=== PATIENT | male | born 1950 | race Caucasian/White ===

== ENCOUNTER 2020-03-08 19:29 | Inpatient (IN) | payer MEDICARE, MEDICAID ==
[~2020-03-08] VITALS: Ht 180.3 cm; Wt 77.1 kg
[~2020-03-08 19:29] MED LIST: ACET-3161 PO; FOLI1TAB63 PO; SEVE800T8 PO; SULF5DRO BOTHEYE
[2020-03-08] MEDS ORDERED: ACETAMINOPHEN 650MG SUPP PR STA (19:51)
[2020-03-08] MEDS ORDERED: PROPOFOL 10MG/ML 100ML 100 ML IV ONE (20:00)
[2020-03-08] MEDS ORDERED: PIPERACILLIN/TAZ 3.375G PREMIX 50 ML IV ONE (20:00)
[2020-03-08] MEDS ORDERED: VANCOMYCIN 1 G PREMIX 200 ML IV ONE (20:00)
[2020-03-08 20:04] LABS: BG DEOXYHEMOGLOBIN 4.3 % (0.0-5.0); BG FRACTION INSPIRED OXYGEN 100; BG HCO3 ACT 14.4 mmol/L (22.0-26.0); BG METHEMOGLOBIN 0.4 % (0.0-1.5); BG OXYGEN SATURATION 95.6 % (92.0-98.5); BG OXYHEMOGLOBIN 94.3 % (94.0-97.0); BG PCO2 34.8 mmHg (35.0-45.0); BG PH 7.234 (7.350-7.450); BG PO2 94.3 mmHg (75.0-100.0); BG SAMPLE SITE LEFT RADIAL; BG TOTAL HEMOGLOBIN 16.6 g/dL (12.0-18.0); BG VENT MODE VENT - AC
[2020-03-08] MEDS ORDERED: DEXAMETHASONE 10 MG/ML VIAL IV ONE (20:15)
[2020-03-08 20:26] LABS: BASOPHILS % 0.8 % (0.0-2.0); EOSINOPHILS % 0.3 % (0.0-5.0); HEMATOCRIT. 48.4 % (42.0-52.0); LYMPHOCYTES % 13.8 % (20.0-50.0); MEAN CORPUSCULAR HEMOGLOBIN 29.5 pg (28.0-32.0); MEAN PLATELET VOLUME 9.3 fl (7.4-10.4); MONOCYTES % 6.8 % (2.0-8.0); NEUTROPHILS % 78.3 % (40.0-76.0); PLATELET 241 x1000/uL (130-400); RED BLOOD CELL COUNT 5.44 mill/uL (4.7-6.1); RED CELL DISTRIBUTION WIDTH 15.4 % (11.6-14.6)
[2020-03-08 20:35] LABS: CHLORIDE 105 mEq/L (98-107)
[2020-03-08 20:37] LABS: INR 1.2; PROTHROMBIN TIME 12.9 sec (9.6-11.0)
[2020-03-08 20:47] LABS: CLARITY URINE CLEAR (CLEAR); COLOR URINE DARK YELLOW (YELLOW); KETONES URINE TRACE (NEGATIVE); LEUKOCYTE ESTERASE URINE NEGATIVE (NEGATIVE); NITRITE URINE NEGATIVE (NEGATIVE); OCCULT BLOOD URINE NEGATIVE (NEGATIVE); PROTEIN URINE 1+ (NEGATIVE); SPECIFIC GRAVITY URINE 1.025 (1.005-1.030); UROBILINOGEN URINE 0.2 E.U./dL (0.2-1.0)
[2020-03-08] MEDS ORDERED: NOREPINEPHRINE 8 MG in DEXT 5% WATER 242 ML IV PRN (21:30)
[2020-03-08] MEDS ORDERED: CLONIDINE 0.1MG TABLET PO PRN (21:30)
[2020-03-08] MEDS ORDERED: DOCUSATE SODIUM 100MG CAPSULE PO PRN (21:30)
[2020-03-08] MEDS ORDERED: ONDANSETRON HCL 4MG/2ML INJ IV PRN (21:30)
[2020-03-08] MEDS ORDERED: ALBUTEROL 6.7GM HFA INHALER ORI PRN (21:30)
[2020-03-08] MEDS ORDERED: ACETAMINOPHEN 325MG TABLET PO PRN ×2 (21:30)
[2020-03-08] MEDS ORDERED: NITROGLYCERIN 0.4MG TABLET SL SL PRN (21:30)
[2020-03-08] MEDS ORDERED: MAGNESIUM/ALUMINUM HYDROXIDE/SIMETHICONE 30ML UDC PO PRN (21:30)
[2020-03-08] MEDS ORDERED: ZOLPIDEM TARTRATE 5MG TABLET PO PRN (21:30)
[2020-03-08] MEDS ORDERED: GUAIFENESIN 200MG/10ML SUGAR FREE UDC PO PRN (21:30)
[2020-03-08 22:18] LABS: VITAMIN B12 SERUM >2000 pg/mL pg/mL (211-911)
[2020-03-08] MEDS: ENOXAPARIN 40MG/0.4ML SYR SUBCUT SCH (22:36)
[2020-03-08] MEDS: CEFTRIAXONE 1 G PREMIX 50 ML IV SCH (23:00)
[2020-03-08] MEDS: AZITHROMYCIN 500 MG in DEXT 5% WATER 250 ML IV SCH (23:44)
[2020-03-09] MEDS ORDERED: PHENYLEPHRINE 50 MG in DEXTROSE 5% WATER 250 ML IV PRN (01:00)
[2020-03-09] MEDS ORDERED: FENTANYL CITRATE 2,500 MCG in SODIUM CHLORIDE 0.9% 200 ML IV PRN (01:00)
[2020-03-09] MEDS ORDERED: ETOMIDATE 2MG/ML 10ML VIAL IV ONE (01:00)
[2020-03-09] MEDS ORDERED: VECURONIUM BROMIDE 10 MG/VIAL IV ONE (01:00)
[2020-03-09] MEDS ORDERED: SODIUM CHLORIDE 0.9% 10ML VIAL ONE (01:00)
[2020-03-09] MEDS: MIDAZOLAM HCL 100 MG in DEXT 5% WATER 100 ML IV PRN (01:17)
[2020-03-09 05:34] LABS: HEMATOCRIT. 43.9 % (42.0-52.0); HEMOGLOBIN. 14.8 g/dL (14.0-18.0); MEAN CORPUSCULAR VOLUME 88.7 fL (80.0-94.0); PLATELET 185 x1000/uL (130-400); RED BLOOD CELL COUNT 4.95 mill/uL (4.7-6.1); RED CELL DISTRIBUTION WIDTH 15.1 % (11.6-14.6)
[2020-03-09 05:42] LABS: CHLORIDE 103 mEq/L (98-107)
[2020-03-09 05:49] LABS: PHOSPHORUS 4.2 mg/dL (2.5-4.9)
[2020-03-09 05:51] LABS: CREATINE KINASE 70 IU/L (39-308)
[2020-03-09 05:54] LABS: CREATINE KINASE MB FRACTION 3.6 ng/mL (0.5-3.6)
[2020-03-09] MEDS: ZINC SULFATE 220 MG ( 50 ) CAPSULE PO SCH (08:24)
[2020-03-09] MEDS: PANTOPRAZOLE SODIUM 40 MG/VIAL IV SCH (08:24)
[2020-03-09] MEDS: DEXAMETHASONE 10 MG/ML VIAL IV SCH (08:24)
[2020-03-09] MEDS: ASCORBIC ACID 500 MG TABLET PO SCH ×2 (08:24→21:07)
[2020-03-09] MEDS ORDERED: SODIUM POLYSTYRENE SULFONATE 15 G/60 ML BOT PO NR (09:00)
[2020-03-09] MEDS: ASPIRIN 325MG TABLET PO SCH (09:00)
[2020-03-09] MEDS: ALBUTEROL 6.7GM HFA INHALER ORI SCH ×2 (09:00→16:19)
[2020-03-09 09:32] LABS: BG BASE EXCESS -5.1 mmol/L (-2.0-2.0); BG CARBOXYHEMOGLOBIN 0.3 % (0.5-1.5); BG DEOXYHEMOGLOBIN 5.3 % (0.0-5.0); BG FRACTION INSPIRED OXYGEN 100; BG HCO3 ACT 18.4 mmol/L (22.0-26.0); BG METHEMOGLOBIN 0.1 % (0.0-1.5); BG OXYGEN SATURATION 94.7 % (92.0-98.5); BG OXYHEMOGLOBIN 94.3 % (94.0-97.0); BG PCO2 30.6 mmHg (35.0-45.0); BG PH 7.396 (7.350-7.450); BG PO2 72.7 mmHg (75.0-100.0); BG SAMPLE SITE RIGHT RADIAL; BG TOTAL HEMOGLOBIN 15.7 g/dL (12.0-18.0); BG TOTAL RESPIRATORY RATE 24 b/min; BG VENT MODE VENT - AC
[2020-03-09] MEDS: SODIUM BICARBONATE 100 MEQ in SODIUM CHLORIDE 0.45% 1,000 ML IV SCH ×2 (09:46→20:08)
[2020-03-09] MEDS ORDERED: TACROLIMUS 5MG CAPSULE PO SCH (17:00)
[2020-03-09] MEDS ORDERED: IPRATROPIUM/ALBUTEROL 0.5-3(2.5)MG/3ML NEB HHN PRN (17:45)
[2020-03-09 18:50] LABS: PLATELET ESTIMATE NORMAL
[2020-03-09] MEDS ORDERED: NOREPINEPHRINE 8 MG in DEXT 5% WATER 242 ML IV PRN (19:45)
[2020-03-09] MEDS: TACROLIMUS 1 MG/ML NG SCH (21:03)
[2020-03-09] MEDS: ENOXAPARIN 40MG/0.4ML SYR SUBCUT SCH (21:07)
[2020-03-09] MEDS: IPRATROPIUM/ALBUTEROL 0.5-3(2.5)MG/3ML NEB HHN SCH (21:50)
[2020-03-09] MEDS: CEFTRIAXONE 1 G PREMIX 50 ML IV SCH (22:15)
[2020-03-09] MEDS: AZITHROMYCIN 500 MG in DEXT 5% WATER 250 ML IV SCH (23:21)
[2020-03-10] MEDS: IPRATROPIUM/ALBUTEROL 0.5-3(2.5)MG/3ML NEB HHN SCH ×6 (00:43→20:20)
[2020-03-10 05:40] LABS: HEMATOCRIT. 41.4 % (42.0-52.0); HEMOGLOBIN. 13.9 g/dL (14.0-18.0); MEAN CORPUSCULAR HEMOGLOBIN 29.4 pg (28.0-32.0); MEAN CORPUSCULAR VOLUME 87.7 fL (80.0-94.0); MEAN PLATELET VOLUME 9.7 fl (7.4-10.4); PLATELET 193 x1000/uL (130-400); RED BLOOD CELL COUNT 4.73 mill/uL (4.7-6.1); RED CELL DISTRIBUTION WIDTH 14.8 % (11.6-14.6)
[2020-03-10 05:47] LABS: CHLORIDE 102 mEq/L (98-107)
[2020-03-10] MEDS ORDERED: TAMSULOSIN HCL 0.4MG SR CAPSULE PO SCH (09:00)
[2020-03-10] MEDS: SODIUM BICARBONATE 100 MEQ in SODIUM CHLORIDE 0.45% 1,000 ML IV SCH (09:15)
[2020-03-10] MEDS: ASPIRIN 325MG TABLET PO SCH (09:34)
[2020-03-10] MEDS: ZINC SULFATE 220 MG ( 50 ) CAPSULE PO SCH (09:34)
[2020-03-10] MEDS: PANTOPRAZOLE SODIUM 40 MG/VIAL IV SCH (09:34)
[2020-03-10] MEDS: DEXAMETHASONE 10 MG/ML VIAL IV SCH (09:34)
[2020-03-10] MEDS: ASCORBIC ACID 500 MG TABLET PO SCH (09:34)
[2020-03-10] MEDS: TACROLIMUS 1 MG/ML NG SCH (09:34)
[2020-03-10 10:24] LABS: BG BASE EXCESS -1.1 mmol/L (-2.0-2.0); BG CARBOXYHEMOGLOBIN 0.5 % (0.5-1.5); BG DEOXYHEMOGLOBIN 7.6 % (0.0-5.0); BG FRACTION INSPIRED OXYGEN 100; BG HCO3 ACT 22.2 mmol/L (22.0-26.0); BG METHEMOGLOBIN 0.2 % (0.0-1.5); BG OXYGEN SATURATION 92.3 % (92.0-98.5); BG OXYHEMOGLOBIN 91.7 % (94.0-97.0); BG PCO2 33.4 mmHg (35.0-45.0); BG PH 7.441 (7.350-7.450); BG PO2 63.3 mmHg (75.0-100.0); BG SAMPLE SITE RIGHT RADIAL; BG TOTAL HEMOGLOBIN 14.1 g/dL (12.0-18.0); BG TOTAL RESPIRATORY RATE 24 b/min; BG VENT MODE VENT - AC
[2020-03-10] MEDS: DEXT 5%/0.45% NACL 1000ML 1,000 ML IV SCH (12:59)
[2020-03-10 13:08] LABS: PLATELET ESTIMATE NORMAL
[2020-03-11] MEDS: IPRATROPIUM/ALBUTEROL 0.5-3(2.5)MG/3ML NEB HHN SCH ×6 (00:30→20:41)
[2020-03-11] MEDS: MIDAZOLAM HCL 100 MG in DEXT 5% WATER 100 ML IV PRN (00:50)
[2020-03-11] MEDS: CEFTRIAXONE 1 G PREMIX 50 ML IV SCH ×2 (01:22→22:30)
[2020-03-11] MEDS: ASCORBIC ACID 500 MG TABLET PO SCH ×3 (01:22→21:00)
[2020-03-11] MEDS: AZITHROMYCIN 500 MG in DEXT 5% WATER 250 ML IV SCH (02:12)
[2020-03-11] MEDS: TACROLIMUS 1 MG/ML NG SCH ×2 (02:20→09:00)
[2020-03-11] MEDS: ENOXAPARIN 40MG/0.4ML SYR SUBCUT SCH (02:21)
[2020-03-11] MEDS: DEXT 5%/0.45% NACL 1000ML 1,000 ML IV SCH ×2 (05:27→19:20)
[2020-03-11] MEDS: DEXAMETHASONE 10 MG/ML VIAL IV SCH (09:00)
[2020-03-11] MEDS: ASPIRIN 325MG TABLET PO SCH (09:00)
[2020-03-11] MEDS: ZINC SULFATE 220 MG ( 50 ) CAPSULE PO SCH (09:00)
[2020-03-11] MEDS: PANTOPRAZOLE SODIUM 40 MG/VIAL IV SCH (09:00)
[2020-03-11 09:44] LABS: BG BASE EXCESS 0.9 mmol/L (-2.0-2.0); BG DEOXYHEMOGLOBIN 2.2 % (0.0-5.0); BG FRACTION INSPIRED OXYGEN 100; BG METHEMOGLOBIN 0.1 % (0.0-1.5); BG OXYGEN SATURATION 97.8 % (92.0-98.5); BG OXYHEMOGLOBIN 97.7 % (94.0-97.0); BG PCO2 33.8 mmHg (35.0-45.0); BG PH 7.469 (7.350-7.450); BG PO2 107.4 mmHg (75.0-100.0); BG SAMPLE SITE RIGHT RADIAL; BG TOTAL HEMOGLOBIN 13.8 g/dL (12.0-18.0); BG VENT MODE VENT - AC
[2020-03-11 12:09] LABS: HEMATOCRIT. 39.9 % (42.0-52.0); HEMOGLOBIN. 13.5 g/dL (14.0-18.0); MEAN CORPUSCULAR HEMOGLOBIN 29.8 pg (28.0-32.0); MEAN CORPUSCULAR VOLUME 88.2 fL (80.0-94.0); PLATELET 199 x1000/uL (130-400); RED BLOOD CELL COUNT 4.53 mill/uL (4.7-6.1); RED CELL DISTRIBUTION WIDTH 14.8 % (11.6-14.6)
[2020-03-11 12:13] LABS: CHLORIDE 101 mEq/L (98-107)
[2020-03-11 12:52] LABS: PLATELET ESTIMATE NORMAL
[2020-03-12] MEDS: IPRATROPIUM/ALBUTEROL 0.5-3(2.5)MG/3ML NEB HHN SCH ×6 (00:22→20:43)
[2020-03-12] MEDS: AZITHROMYCIN 500 MG in DEXT 5% WATER 250 ML IV SCH (01:56)
[2020-03-12] MEDS: TACROLIMUS 1 MG/ML NG SCH ×3 (02:05→18:54)
[2020-03-12] MEDS: ERGOCALCIFEROL 50000UNITS CAPSULE PO SCH (02:05)
[2020-03-12] MEDS: ENOXAPARIN 40MG/0.4ML SYR SUBCUT SCH (02:09)
[2020-03-12 05:23] LABS: HEMATOCRIT. 41.9 % (42.0-52.0); HEMOGLOBIN. 13.9 g/dL (14.0-18.0); MEAN CORPUSCULAR HEMOGLOBIN 29.5 pg (28.0-32.0); MEAN CORPUSCULAR VOLUME 88.8 fL (80.0-94.0); MEAN PLATELET VOLUME 9.4 fl (7.4-10.4); PLATELET 160 x1000/uL (130-400); RED BLOOD CELL COUNT 4.72 mill/uL (4.7-6.1); RED CELL DISTRIBUTION WIDTH 14.8 % (11.6-14.6)
[2020-03-12 05:31] LABS: CHLORIDE 101 mEq/L (98-107)
[2020-03-12 09:59] LABS: PLATELET ESTIMATE NORMAL
[2020-03-12] MEDS: ASPIRIN 325MG TABLET PO SCH (12:00)
[2020-03-12] MEDS: ASCORBIC ACID 500 MG TABLET PO SCH ×2 (12:00→21:00)
[2020-03-12] MEDS: PANTOPRAZOLE SODIUM 40 MG/VIAL IV SCH (12:00)
[2020-03-12] MEDS: ZINC SULFATE 220 MG ( 50 ) CAPSULE PO SCH (12:00)
[2020-03-12] MEDS: DEXAMETHASONE 10 MG/ML VIAL IV SCH (15:25)
[2020-03-12] MEDS: DEXT 5%/0.45% NACL 1000ML 1,000 ML IV SCH (17:33)
[2020-03-12 18:46] LABS: BG BASE EXCESS -0.7 mmol/L (-2.0-2.0); BG DEOXYHEMOGLOBIN 1.2 % (0.0-5.0); BG FRACTION INSPIRED OXYGEN 100; BG HCO3 ACT 21.7 mmol/L (22.0-26.0); BG METHEMOGLOBIN 0.2 % (0.0-1.5); BG OXYGEN SATURATION 98.8 % (92.0-98.5); BG OXYHEMOGLOBIN 98.6 % (94.0-97.0); BG PCO2 29.9 mmHg (35.0-45.0); BG PH 7.479 (7.350-7.450); BG PO2 151.2 mmHg (75.0-100.0); BG SAMPLE SITE RIGHT RADIAL; BG TOTAL HEMOGLOBIN 14.4 g/dL (12.0-18.0); BG VENT MODE VENT - AC
[2020-03-12] MEDS: CEFTRIAXONE 1 G PREMIX 50 ML IV SCH (22:30)
[2020-03-13] MEDS: IPRATROPIUM/ALBUTEROL 0.5-3(2.5)MG/3ML NEB HHN SCH ×6 (00:30→20:25)
[2020-03-13] MEDS: AZITHROMYCIN 500 MG in DEXT 5% WATER 250 ML IV SCH (03:00)
[2020-03-13] MEDS: DEXT 5%/0.45% NACL 1000ML 1,000 ML IV SCH ×2 (04:40→21:20)
[2020-03-13] MEDS: ENOXAPARIN 40MG/0.4ML SYR SUBCUT SCH ×2 (05:00→21:00)
[2020-03-13 08:16] LABS: BG BASE EXCESS -1.6 mmol/L (-2.0-2.0); BG CARBOXYHEMOGLOBIN 0.4 % (0.5-1.5); BG DEOXYHEMOGLOBIN 1.2 % (0.0-5.0); BG HCO3 ACT 22.2 mmol/L (22.0-26.0); BG METHEMOGLOBIN 0.3 % (0.0-1.5); BG OXYGEN SATURATION 98.8 % (92.0-98.5); BG OXYHEMOGLOBIN 98.1 % (94.0-97.0); BG PCO2 34.8 mmHg (35.0-45.0); BG PH 7.422 (7.350-7.450); BG PO2 156.6 mmHg (75.0-100.0); BG SAMPLE SITE RIGHT RADIAL; BG TOTAL HEMOGLOBIN 14.4 g/dL (12.0-18.0); BG VENT MODE VENT - AC
[2020-03-13] MEDS: PANTOPRAZOLE SODIUM 40 MG/VIAL IV SCH (09:34)
[2020-03-13] MEDS: ZINC SULFATE 220 MG ( 50 ) CAPSULE PO SCH (09:34)
[2020-03-13] MEDS: ASPIRIN 325MG TABLET PO SCH (09:34)
[2020-03-13] MEDS: DEXAMETHASONE 10 MG/ML VIAL IV SCH (09:34)
[2020-03-13] MEDS: ASCORBIC ACID 500 MG TABLET PO SCH ×2 (09:34→21:00)
[2020-03-13] MEDS: TACROLIMUS 1 MG/ML NG SCH (10:32)
[2020-03-13] MEDS ORDERED: THEOPHYLLINE ANHYDROUS 80 MG/15 ML 120ML NG SCH (19:00)
[2020-03-14] MEDS: IPRATROPIUM/ALBUTEROL 0.5-3(2.5)MG/3ML NEB HHN SCH ×6 (00:29→20:56)
[2020-03-14] MEDS ORDERED: MIDAZOLAM HCL 100 MG in DEXT 5% WATER 100 ML IV PRN ×2 (07:30→19:45)
[2020-03-14] MEDS: ASPIRIN 325MG TABLET PO SCH (09:00)
[2020-03-14 09:09] LABS: HEMATOCRIT. 44.6 % (42.0-52.0); HEMOGLOBIN. 14.9 g/dL (14.0-18.0); MEAN CORPUSCULAR HEMOGLOBIN 29.7 pg (28.0-32.0); MEAN CORPUSCULAR VOLUME 88.8 fL (80.0-94.0); PLATELET 139 x1000/uL (130-400); RED BLOOD CELL COUNT 5.02 mill/uL (4.7-6.1); RED CELL DISTRIBUTION WIDTH 14.8 % (11.6-14.6)
[2020-03-14 09:16] LABS: CHLORIDE 106 mEq/L (98-107)
[2020-03-14] MEDS: ZINC SULFATE 220 MG ( 50 ) CAPSULE PO SCH (11:30)
[2020-03-14] MEDS: PANTOPRAZOLE SODIUM 40 MG/VIAL IV SCH (11:30)
[2020-03-14] MEDS: ASCORBIC ACID 500 MG TABLET PO SCH ×2 (11:30→21:28)
[2020-03-14] MEDS: DEXAMETHASONE 10 MG/ML VIAL IV SCH (11:30)
[2020-03-14] MEDS ORDERED: SODIUM POLYSTYRENE SULFONATE 15 G/60 ML BOT NG NR (12:30)
[2020-03-14 12:42] LABS: PLATELET ESTIMATE NORMAL
[2020-03-14] MEDS: DEXT 5%/0.45% NACL 1000ML 1,000 ML IV SCH (14:49)
[2020-03-14] MEDS: TACROLIMUS 1 MG/ML NG SCH (16:22)
[2020-03-14] MEDS: ENOXAPARIN 40MG/0.4ML SYR SUBCUT SCH (20:53)
[2020-03-15] VITALS (9 sets, daily range): BP systolic 114–124; BP diastolic 66–74
[2020-03-15] MEDS: IPRATROPIUM/ALBUTEROL 0.5-3(2.5)MG/3ML NEB HHN SCH ×3 (00:10→21:30)
[2020-03-15] MEDS: TACROLIMUS 1 MG/ML NG SCH ×3 (04:16→21:00)
[2020-03-15 04:33] LABS: HEMATOCRIT. 43.6 % (42.0-52.0); MEAN CORPUSCULAR HEMOGLOBIN 29.2 pg (28.0-32.0); MEAN CORPUSCULAR VOLUME 90.9 fL (80.0-94.0); MEAN PLATELET VOLUME 9.9 fl (7.4-10.4); PLATELET 78 x1000/uL (130-400); RED CELL DISTRIBUTION WIDTH 15.1 % (11.6-14.6)
[2020-03-15] MEDS ORDERED: SODIUM BICARBONATE 8.4% 1 MEQ/ML 50ML SYR IV NR (05:39)
[2020-03-15] MEDS ORDERED: DEXTROSE 50% WATER 50ML SYRINGE IV NR (05:39)
[2020-03-15] MEDS ORDERED: SODIUM POLYSTYRENE SULFONATE 15 G/60 ML BOT PO NR (05:39)
[2020-03-15] MEDS ORDERED: INSULIN REGULAR (HUMULIN R) 300UNITS/3ML VIAL IV NR (05:39)
[2020-03-15] MEDS ORDERED: CALCIUM CHLORIDE 1,000 MG in DEXT 5% WATER 90 ML IV NR (06:00)
[2020-03-15 09:06] LABS: CREATINE KINASE 45 IU/L (39-308)
[2020-03-15] MEDS: PANTOPRAZOLE SODIUM 40 MG/VIAL IV SCH (10:31)
[2020-03-15] MEDS: DEXAMETHASONE 10 MG/ML VIAL IV SCH (10:31)
[2020-03-15] MEDS: ASPIRIN 325MG TABLET PO SCH (10:32)
[2020-03-15] MEDS: ZINC SULFATE 220 MG ( 50 ) CAPSULE PO SCH (10:32)
[2020-03-15] MEDS: ASCORBIC ACID 500 MG TABLET PO SCH ×2 (10:32→21:54)
[2020-03-15 11:31] LABS: BG BASE EXCESS -3.2 mmol/L (-2.0-2.0); BG CARBOXYHEMOGLOBIN 0.5 % (0.5-1.5); BG FRACTION INSPIRED OXYGEN 100; BG HCO3 ACT 21.5 mmol/L (22.0-26.0); BG OXYHEMOGLOBIN 96.5 % (94.0-97.0); BG PCO2 37.8 mmHg (35.0-45.0); BG PH 7.373 (7.350-7.450); BG PO2 93.2 mmHg (75.0-100.0); BG SAMPLE SITE LEFT BRACHIAL; BG TOTAL HEMOGLOBIN 15.3 g/dL (12.0-18.0); BG TOTAL RESPIRATORY RATE 26 b/min; BG VENT MODE VENT - AC
[2020-03-15 14:01] LABS: PLATELET ESTIMATE DECREASED
[2020-03-15] MEDS: DEXT 5%/0.45% NACL 1000ML 1,000 ML IV SCH (21:56)
[2020-03-15] MEDS: FENTANYL CITRATE 2,500 MCG in SODIUM CHLORIDE 0.9% 200 ML IV PRN (22:00)
[2020-03-16] VITALS (84 sets, daily range): BP systolic 116–182; BP diastolic 55–88
[2020-03-16 00:01] LABS: BG BASE EXCESS -4.5 mmol/L (-2.0-2.0); BG CARBOXYHEMOGLOBIN 0.7 % (0.5-1.5); BG DEOXYHEMOGLOBIN 9.9 % (0.0-5.0); BG FRACTION INSPIRED OXYGEN 100; BG HCO3 ACT 20.9 mmol/L (22.0-26.0); BG METHEMOGLOBIN 0.3 % (0.0-1.5); BG OXYHEMOGLOBIN 89.1 % (94.0-97.0); BG PCO2 39.9 mmHg (35.0-45.0); BG PH 7.337 (7.350-7.450); BG PO2 59.2 mmHg (75.0-100.0); BG SAMPLE SITE RIGHT BRACHIAL; BG TOTAL HEMOGLOBIN 14.9 g/dL (12.0-18.0); BG VENT MODE VENT - AC
[2020-03-16] MEDS: MIDAZOLAM HCL 100 MG in SODIUM CHLORIDE 0.9% 80 ML IV PRN ×2 (00:03→17:10)
[2020-03-16] MEDS: DEXT 5%/0.45% NACL 1000ML 1,000 ML IV SCH (00:04)
[2020-03-16] MEDS: IPRATROPIUM/ALBUTEROL 0.5-3(2.5)MG/3ML NEB HHN SCH ×7 (02:11→23:53)
[2020-03-16 07:53] LABS: BG BASE EXCESS -3.8 mmol/L (-2.0-2.0); BG CARBOXYHEMOGLOBIN 1.5 % (0.5-1.5); BG FRACTION INSPIRED OXYGEN 100; BG HCO3 ACT 20.2 mmol/L (22.0-26.0); BG METHEMOGLOBIN 0.3 % (0.0-1.5); BG OXYGEN SATURATION 96.9 % (92.0-98.5); BG OXYHEMOGLOBIN 95.2 % (94.0-97.0); BG PCO2 33.8 mmHg (35.0-45.0); BG PH 7.394 (7.350-7.450); BG PO2 87.9 mmHg (75.0-100.0); BG SAMPLE SITE RIGHT RADIAL; BG TOTAL HEMOGLOBIN 14.1 g/dL (12.0-18.0); BG TOTAL RESPIRATORY RATE 24 b/min; BG VENT MODE VENT - AC
[2020-03-16] MEDS: TACROLIMUS 1 MG/ML NG SCH ×2 (09:00→21:24)
[2020-03-16] MEDS: ZINC SULFATE 220 MG ( 50 ) CAPSULE PO SCH (09:29)
[2020-03-16] MEDS: DEXAMETHASONE 10 MG/ML VIAL IV SCH (09:29)
[2020-03-16] MEDS: ASPIRIN 325MG TABLET PO SCH (09:29)
[2020-03-16] MEDS: PANTOPRAZOLE SODIUM 40 MG/VIAL IV SCH (09:29)
[2020-03-16] MEDS: ASCORBIC ACID 500 MG TABLET PO SCH ×2 (09:29→21:24)
[2020-03-16] MEDS: DEXT 5%/0.9% NACL 1,000 ML IV SCH ×2 (16:24→19:01)
[2020-03-16] MEDS: FENTANYL CITRATE 2,500 MCG in SODIUM CHLORIDE 0.9% 200 ML IV PRN (18:55)
[2020-03-16 22:17] LABS: BG BASE EXCESS -7.2 mmol/L (-2.0-2.0); BG CARBOXYHEMOGLOBIN 1.4 % (0.5-1.5); BG DEOXYHEMOGLOBIN 67.5 % (0.0-5.0); BG FRACTION INSPIRED OXYGEN 100; BG HCO3 ACT 22.5 mmol/L (22.0-26.0); BG METHEMOGLOBIN 0.2 % (0.0-1.5); BG OXYGEN SATURATION 31.4 % (92.0-98.5); BG OXYHEMOGLOBIN 30.9 % (94.0-97.0); BG PCO2 63.7 mmHg (35.0-45.0); BG PH 7.165 (7.350-7.450); BG PO2 < 30.3 mmHg (75.0-100.0); BG SAMPLE SITE RIGHT RADIAL; BG TOTAL HEMOGLOBIN 14.8 g/dL (12.0-18.0); BG VENT MODE VENT - AC
[2020-03-16] MEDS ORDERED: DILTIAZEM HCL 5MG/ML 5ML VIAL IV NR (22:30)
[2020-03-16] MEDS ORDERED: DILTIAZEM HCL 5MG/ML 5ML VIAL IV ONE (22:30)
[2020-03-16] MEDS ORDERED: AMIODARONE HCL 150 MG in DEXT 5% WATER 100 ML IV NR (23:00)
[2020-03-16 23:27] LABS: BG BASE EXCESS -10.1 mmol/L (-2.0-2.0); BG CARBOXYHEMOGLOBIN 1.5 % (0.5-1.5); BG DEOXYHEMOGLOBIN 52.6 % (0.0-5.0); BG FRACTION INSPIRED OXYGEN 100; BG HCO3 ACT 19.7 mmol/L (22.0-26.0); BG METHEMOGLOBIN 0.1 % (0.0-1.5); BG OXYGEN SATURATION 46.5 % (92.0-98.5); BG OXYHEMOGLOBIN 45.8 % (94.0-97.0); BG PH 7.134 (7.350-7.450); BG PO2 < 30.3 mmHg (75.0-100.0); BG TOTAL HEMOGLOBIN 14.8 g/dL (12.0-18.0); BG VENT MODE VENT - AC
[2020-03-17] VITALS (80 sets, daily range): BP systolic 84–143; BP diastolic 47–79
[2020-03-17] MEDS ORDERED: AMIODARONE HCL 900 MG in DEXT 5% WATER 482 ML IV SCH ×2
[2020-03-17] MEDS: IPRATROPIUM/ALBUTEROL 0.5-3(2.5)MG/3ML NEB HHN SCH ×5 (04:03→20:19)
[2020-03-17 06:04] LABS: HEMATOCRIT. 39.2 % (42.0-52.0); HEMOGLOBIN. 12.6 g/dL (14.0-18.0); MEAN CORPUSCULAR HEMOGLOBIN 29.6 pg (28.0-32.0); MEAN CORPUSCULAR VOLUME 92.2 fL (80.0-94.0); MEAN PLATELET VOLUME 10.5 fl (7.4-10.4); RED BLOOD CELL COUNT 4.25 mill/uL (4.7-6.1); RED CELL DISTRIBUTION WIDTH 15.9 % (11.6-14.6)
[2020-03-17 06:10] LABS: PHOSPHORUS 5.6 mg/dL (2.5-4.9)
[2020-03-17] MEDS ORDERED: SODIUM BICARBONATE 8.4% 1 MEQ/ML 50ML SYR IV NR (09:01)
[2020-03-17] MEDS ORDERED: LIDOCAINE HCL 1% 20ML VIAL (Pyxis) INJ ONE (09:36)
[2020-03-17] MEDS ORDERED: SODIUM BICARBONATE 4% (2.4MEQ) 5ML VIAL IV ONE (09:36)
[2020-03-17] MEDS: MIDAZOLAM HCL 100 MG in DEXT 5% WATER 80 ML IV PRN (09:45)
[2020-03-17] MEDS: ASCORBIC ACID 500 MG TABLET PO SCH ×2 (09:45→23:36)
[2020-03-17] MEDS ORDERED: SODIUM BICARBONATE 8.4% 1 MEQ/ML 50ML SYR IV SCH (09:45)
[2020-03-17] MEDS: ASPIRIN 325MG TABLET PO SCH (09:45)
[2020-03-17] MEDS: DEXAMETHASONE 10 MG/ML VIAL IV SCH (09:45)
[2020-03-17] MEDS: ZINC SULFATE 220 MG ( 50 ) CAPSULE PO SCH (09:45)
[2020-03-17] MEDS: PANTOPRAZOLE SODIUM 40 MG/VIAL IV SCH (09:45)
[2020-03-17] MEDS: DEXT 5%/0.9% NACL 1,000 ML IV SCH ×2 (09:46→09:47)
[2020-03-17 10:34] LABS: BG DEOXYHEMOGLOBIN 1.6 % (0.0-5.0); BG FRACTION INSPIRED OXYGEN 100; BG HCO3 ACT 18.6 mmol/L (22.0-26.0); BG METHEMOGLOBIN 0.3 % (0.0-1.5); BG OXYGEN SATURATION 98.4 % (92.0-98.5); BG OXYHEMOGLOBIN 97.1 % (94.0-97.0); BG PCO2 37.6 mmHg (35.0-45.0); BG PH 7.312 (7.350-7.450); BG SAMPLE SITE RIGHT RADIAL; BG TOTAL HEMOGLOBIN 12.1 g/dL (12.0-18.0); BG VENT MODE VENT - AC
[2020-03-17] MEDS ORDERED: CALCIUM CHLORIDE 1,000 MG in DEXT 5% WATER 90 ML IV NR (11:00)
[2020-03-17] MEDS ORDERED: DEXTROSE 50% WATER 50ML SYRINGE IV NR (11:00)
[2020-03-17] MEDS ORDERED: SODIUM POLYSTYRENE SULFONATE 15 G/60 ML BOT PO NR (11:00)
[2020-03-17] MEDS ORDERED: INSULIN REGULAR (HUMULIN R) UD 100 UNITS/ML SYR IV NR (11:00)
[2020-03-17] MEDS ORDERED: INSULIN REGULAR (HUMULIN R) 300UNITS/3ML VIAL IV NR (11:03)
[2020-03-17] MEDS: TACROLIMUS 1 MG/ML NG SCH ×2 (11:15→23:36)
[2020-03-17 12:25] LABS: INR 1.6; PARTIAL THROMBOPLASTIN TIME 40.9 sec (23.4-31.0); PROTHROMBIN TIME 16.3 sec (9.6-11.0)
[2020-03-17 13:30] LABS: PLATELET 35 x1000/uL (130-400); PLATELET ESTIMATE MARKEDLY DECREASED
[2020-03-17] MEDS ORDERED: INSULIN REGULAR (HUMULIN R) 300UNITS/3ML VIAL SUBCUT SCH (23:00)
[2020-03-17] MEDS ORDERED: SODIUM CHLORIDE 0.45% 1,000 ML IV SCH (23:15)
[2020-03-17] MEDS ORDERED: INSULIN GLARGINE UD 100 UNITS/ML SYR SUBCUT SCH (23:30)
[2020-03-18] VITALS (94 sets, daily range): BP systolic 122–164; BP diastolic 60–90
[2020-03-18] MEDS: MIDAZOLAM HCL 100 MG in DEXT 5% WATER 80 ML IV PRN ×2 (00:01→14:32)
[2020-03-18] MEDS: IPRATROPIUM/ALBUTEROL 0.5-3(2.5)MG/3ML NEB HHN SCH ×5 (00:15→20:41)
[2020-03-18] MEDS: BLOOD SUGAR DIAGNOSTIC STRIP TEST SCH ×4 (00:43→17:37)
[2020-03-18] MEDS: INSULIN LISPRO 100 UNITS/ML SUBCUT SCH ×4 (00:47→17:36)
[2020-03-18] MEDS: FENTANYL CITRATE 2,500 MCG in SODIUM CHLORIDE 0.9% 200 ML IV PRN (03:19)
[2020-03-18 06:10] LABS: HEMATOCRIT. 33.9 % (42.0-52.0); MEAN CORPUSCULAR HEMOGLOBIN 29.3 pg (28.0-32.0); MEAN CORPUSCULAR VOLUME 90.7 fL (80.0-94.0); MEAN PLATELET VOLUME 10.4 fl (7.4-10.4); RED BLOOD CELL COUNT 3.74 mill/uL (4.7-6.1); RED CELL DISTRIBUTION WIDTH 15.4 % (11.6-14.6)
[2020-03-18] MEDS: TACROLIMUS 1 MG/ML NG SCH ×2 (08:40→22:10)
[2020-03-18] MEDS: ZINC SULFATE 220 MG ( 50 ) CAPSULE PO SCH (08:42)
[2020-03-18] MEDS: DEXAMETHASONE 10 MG/ML VIAL IV SCH (08:42)
[2020-03-18] MEDS: ERGOCALCIFEROL 50000UNITS CAPSULE PO SCH (08:42)
[2020-03-18] MEDS: ASCORBIC ACID 500 MG TABLET PO SCH ×2 (08:42→22:09)
[2020-03-18] MEDS: PANTOPRAZOLE SODIUM 40 MG/VIAL IV SCH (08:42)
[2020-03-18] MEDS: ASPIRIN 325MG TABLET PO SCH (08:42)
[2020-03-18] MEDS: FUROSEMIDE 40MG/4ML VIAL IVP SCH (08:44)
[2020-03-18] MEDS: INSULIN GLARGINE UD 100 UNITS/ML SYR SUBCUT SCH ×2 (12:44→22:11)
[2020-03-18] MEDS: MYCOPHENOLATE MOFETIL 200MG/ML ORAL SUSP NG SCH ×2 (13:44→22:10)
[2020-03-18 15:02] LABS: PLATELET ESTIMATE MARKEDLY DECREASED
[2020-03-18 15:03] LABS: PLATELET 45 x1000/uL (130-400)
[2020-03-18] MEDS ORDERED: INSULIN GLARGINE UD 100 UNITS/ML SYR SUBCUT SCH (22:00)
[2020-03-19] VITALS (86 sets, daily range): BP systolic 99–150; BP diastolic 55–77
[2020-03-19] MEDS: IPRATROPIUM/ALBUTEROL 0.5-3(2.5)MG/3ML NEB HHN SCH ×6 (00:27→21:51)
[2020-03-19] MEDS: BLOOD SUGAR DIAGNOSTIC STRIP TEST SCH ×5 (00:42→23:49)
[2020-03-19] MEDS: INSULIN LISPRO 100 UNITS/ML SUBCUT SCH ×5 (00:51→23:52)
[2020-03-19] MEDS: FENTANYL CITRATE 2,500 MCG in SODIUM CHLORIDE 0.9% 200 ML IV PRN ×2 (00:55→19:00)
[2020-03-19] MEDS: MIDAZOLAM HCL 100 MG in DEXT 5% WATER 80 ML IV PRN ×3 (03:11→22:27)
[2020-03-19 04:35] LABS: HEMATOCRIT. 35.1 % (42.0-52.0); HEMOGLOBIN. 11.3 g/dL (14.0-18.0); MEAN CORPUSCULAR HEMOGLOBIN 28.7 pg (28.0-32.0); MEAN CORPUSCULAR VOLUME 89.1 fL (80.0-94.0); MEAN PLATELET VOLUME 10.8 fl (7.4-10.4); RED BLOOD CELL COUNT 3.94 mill/uL (4.7-6.1); RED CELL DISTRIBUTION WIDTH 15.1 % (11.6-14.6)
[2020-03-19 04:48] LABS: PHOSPHORUS 5.6 mg/dL (2.5-4.9)
[2020-03-19 11:01] LABS: BG BASE EXCESS 0.5 mmol/L (-2.0-2.0); BG CARBOXYHEMOGLOBIN 0.3 % (0.5-1.5); BG DEOXYHEMOGLOBIN 1.5 % (0.0-5.0); BG FRACTION INSPIRED OXYGEN 100; BG HCO3 ACT 24.5 mmol/L (22.0-26.0); BG METHEMOGLOBIN 0.1 % (0.0-1.5); BG OXYGEN SATURATION 98.5 % (92.0-98.5); BG OXYHEMOGLOBIN 98.1 % (94.0-97.0); BG PCO2 37.4 mmHg (35.0-45.0); BG PH 7.435 (7.350-7.450); BG PO2 149.1 mmHg (75.0-100.0); BG SAMPLE SITE RIGHT RADIAL; BG TOTAL RESPIRATORY RATE 36 b/min; BG VENT MODE VENT - AC
[2020-03-19] MEDS: MYCOPHENOLATE MOFETIL 200MG/ML ORAL SUSP NG SCH ×2 (11:45→22:06)
[2020-03-19] MEDS: ASCORBIC ACID 500 MG TABLET PO SCH ×2 (11:46→22:05)
[2020-03-19] MEDS: TACROLIMUS 1 MG/ML NG SCH ×2 (11:46→22:06)
[2020-03-19] MEDS: PANTOPRAZOLE SODIUM 40 MG/VIAL IV SCH (11:46)
[2020-03-19] MEDS: ASPIRIN 81MG TABLET PO SCH (11:46)
[2020-03-19] MEDS: FUROSEMIDE 40MG/4ML VIAL IVP SCH (11:47)
[2020-03-19] MEDS: ZINC SULFATE 220 MG ( 50 ) CAPSULE PO SCH (11:47)
[2020-03-19] MEDS: DEXAMETHASONE 10 MG/ML VIAL IV SCH (11:47)
[2020-03-19] MEDS: INSULIN GLARGINE UD 100 UNITS/ML SYR SUBCUT SCH ×2 (11:49→22:23)
[2020-03-19 14:58] LABS: PLATELET 46 x1000/uL (130-400); PLATELET ESTIMATE MARKEDLY DECREASED
[2020-03-20] VITALS (91 sets, daily range): BP systolic 117–166; BP diastolic 64–90
[2020-03-20] MEDS: IPRATROPIUM/ALBUTEROL 0.5-3(2.5)MG/3ML NEB HHN SCH ×6 (01:21→21:35)
[2020-03-20] MEDS: BLOOD SUGAR DIAGNOSTIC STRIP TEST SCH ×3 (07:00→17:49)
[2020-03-20] MEDS: INSULIN LISPRO 100 UNITS/ML SUBCUT SCH ×3 (08:19→17:49)
[2020-03-20 09:44] LABS: BG BASE EXCESS 0.7 mmol/L (-2.0-2.0); BG CARBOXYHEMOGLOBIN 0.6 % (0.5-1.5); BG DEOXYHEMOGLOBIN 3.1 % (0.0-5.0); BG FRACTION INSPIRED OXYGEN 100; BG HCO3 ACT 25.2 mmol/L (22.0-26.0); BG METHEMOGLOBIN 0.3 % (0.0-1.5); BG OXYGEN SATURATION 96.9 % (92.0-98.5); BG PCO2 40.1 mmHg (35.0-45.0); BG PH 7.416 (7.350-7.450); BG PO2 95.9 mmHg (75.0-100.0); BG SAMPLE SITE RIGHT RADIAL; BG TOTAL HEMOGLOBIN 12.4 g/dL (12.0-18.0); BG VENT MODE VENT - AC
[2020-03-20] MEDS: ZINC SULFATE 220 MG ( 50 ) CAPSULE PO SCH (10:03)
[2020-03-20] MEDS: INSULIN GLARGINE UD 100 UNITS/ML SYR SUBCUT SCH ×2 (10:03→21:47)
[2020-03-20] MEDS: DEXAMETHASONE 10 MG/ML VIAL IV SCH (10:03)
[2020-03-20] MEDS: ASPIRIN 81MG TABLET PO SCH (10:03)
[2020-03-20] MEDS: FUROSEMIDE 40MG/4ML VIAL IVP SCH (10:03)
[2020-03-20] MEDS: ASCORBIC ACID 500 MG TABLET PO SCH ×2 (10:03→21:44)
[2020-03-20] MEDS: PANTOPRAZOLE SODIUM 40 MG/VIAL IV SCH (10:03)
[2020-03-20] MEDS: TACROLIMUS 1 MG/ML NG SCH ×2 (10:04→21:44)
[2020-03-20] MEDS: MYCOPHENOLATE MOFETIL 200MG/ML ORAL SUSP NG SCH ×2 (10:04→21:44)
[2020-03-20] MEDS: MIDAZOLAM HCL 100 MG in DEXT 5% WATER 80 ML IV PRN ×2 (10:13→21:40)
[2020-03-20 13:06] LABS: HEMATOCRIT. 40.5 % (42.0-52.0); MEAN CORPUSCULAR HEMOGLOBIN 29.2 pg (28.0-32.0); MEAN CORPUSCULAR VOLUME 91.4 fL (80.0-94.0); RED BLOOD CELL COUNT 4.43 mill/uL (4.7-6.1); RED CELL DISTRIBUTION WIDTH 15.7 % (11.6-14.6)
[2020-03-20 15:23] LABS: PLATELET ESTIMATE MARKEDLY DECREASED
[2020-03-20] MEDS: THEOPHYLLINE ANHYDROUS 80 MG/15 ML 120ML NG SCH ×2 (15:23→21:45)
[2020-03-20 15:31] LABS: MEAN PLATELET VOLUME 11.9 fl (7.4-10.4); PLATELET 43 x1000/uL (130-400)
[2020-03-20] MEDS ORDERED: SODIUM POLYSTYRENE SULFONATE 15 G/60 ML BOT NG NR (17:00)
[2020-03-20] MEDS: FENTANYL CITRATE/PF 2,500 MCG in SODIUM CHLORIDE 0.9% 200 ML IV PRN (17:48)
[2020-03-21] VITALS (92 sets, daily range): BP systolic 83–175; BP diastolic 45–94
[2020-03-21] MEDS: BLOOD SUGAR DIAGNOSTIC STRIP TEST SCH ×4 (00:32→17:50)
[2020-03-21] MEDS: INSULIN LISPRO 100 UNITS/ML SUBCUT SCH ×4 (00:58→17:53)
[2020-03-21] MEDS: IPRATROPIUM/ALBUTEROL 0.5-3(2.5)MG/3ML NEB HHN SCH ×5 (03:50→21:23)
[2020-03-21 05:30] LABS: HEMATOCRIT. 37.9 % (42.0-52.0); HEMOGLOBIN. 12.1 g/dL (14.0-18.0); MEAN CORPUSCULAR HEMOGLOBIN 28.6 pg (28.0-32.0); MEAN CORPUSCULAR VOLUME 89.5 fL (80.0-94.0); MEAN PLATELET VOLUME 12.3 fl (7.4-10.4); RED BLOOD CELL COUNT 4.23 mill/uL (4.7-6.1); RED CELL DISTRIBUTION WIDTH 15.3 % (11.6-14.6)
[2020-03-21] MEDS: THEOPHYLLINE ANHYDROUS 80 MG/15 ML 120ML NG SCH ×3 (06:00→21:07)
[2020-03-21 06:50] LABS: PLATELET 48 x1000/uL (130-400)
[2020-03-21] MEDS: ASPIRIN 81MG TABLET PO SCH (09:00)
[2020-03-21 09:09] LABS: BG BASE EXCESS 1.8 mmol/L (-2.0-2.0); BG CARBOXYHEMOGLOBIN 0.5 % (0.5-1.5); BG DEOXYHEMOGLOBIN 8.7 % (0.0-5.0); BG FRACTION INSPIRED OXYGEN 100; BG HCO3 ACT 26.8 mmol/L (22.0-26.0); BG METHEMOGLOBIN 0.3 % (0.0-1.5); BG OXYGEN SATURATION 91.2 % (92.0-98.5); BG OXYHEMOGLOBIN 90.5 % (94.0-97.0); BG PCO2 43.4 mmHg (35.0-45.0); BG PH 7.408 (7.350-7.450); BG PO2 59.1 mmHg (75.0-100.0); BG SAMPLE SITE RIGHT RADIAL; BG TOTAL HEMOGLOBIN 13.9 g/dL (12.0-18.0); BG TOTAL RESPIRATORY RATE 44 b/min; BG VENT MODE VENT - AC
[2020-03-21] MEDS: PANTOPRAZOLE SODIUM 40 MG/VIAL IV SCH (09:50)
[2020-03-21] MEDS: FUROSEMIDE 20MG/2ML VIAL IVP SCH (09:50)
[2020-03-21] MEDS: TACROLIMUS 1 MG/ML NG SCH ×2 (09:51→21:07)
[2020-03-21] MEDS: MYCOPHENOLATE MOFETIL 200MG/ML ORAL SUSP NG SCH ×2 (09:51→21:05)
[2020-03-21] MEDS: ZINC SULFATE 220 MG ( 50 ) CAPSULE PO SCH (09:51)
[2020-03-21] MEDS: INSULIN GLARGINE UD 100 UNITS/ML SYR SUBCUT SCH ×2 (09:51→22:02)
[2020-03-21] MEDS: ASCORBIC ACID 500 MG TABLET PO SCH ×2 (09:52→21:07)
[2020-03-21] MEDS: MIDAZOLAM HCL 100 MG in DEXT 5% WATER 80 ML IV PRN (10:29)
[2020-03-21] MEDS: FENTANYL CITRATE/PF 2,500 MCG in SODIUM CHLORIDE 0.9% 200 ML IV PRN (12:09)
[2020-03-21 14:24] LABS: PLATELET ESTIMATE DECREASED
[2020-03-21] MEDS ORDERED: MIDAZOLAM HCL 100 MG in SODIUM CHLORIDE 0.9% 80 ML IV PRN (18:30)
[2020-03-21] MEDS ORDERED: SODIUM CHLORIDE 0.9% 250 ML IV ONE (23:30)
[2020-03-22] VITALS (111 sets, daily range): BP systolic 72–150; BP diastolic 39–99
[2020-03-22] MEDS ORDERED: SODIUM CHLORIDE 0.9% 250 ML IV ONE (01:30)
[2020-03-22] MEDS ORDERED: NOREPINEPHRINE 32 MG in SODIUM CHLORIDE 0.9% 218 ML IV SCH (03:00)
[2020-03-22] MEDS: FENTANYL CITRATE/PF 2,500 MCG in SODIUM CHLORIDE 0.9% 200 ML IV PRN ×3 (03:01→20:00)
[2020-03-22] MEDS: IPRATROPIUM/ALBUTEROL 0.5-3(2.5)MG/3ML NEB HHN SCH ×5 (03:57→21:35)
[2020-03-22] MEDS: BLOOD SUGAR DIAGNOSTIC STRIP TEST SCH ×4 (05:16→18:27)
[2020-03-22] MEDS: THEOPHYLLINE ANHYDROUS 80 MG/15 ML 120ML NG SCH ×3 (05:16→22:23)
[2020-03-22] MEDS: INSULIN LISPRO 100 UNITS/ML SUBCUT SCH ×4 (05:16→18:00)
[2020-03-22 06:19] LABS: HEMATOCRIT. 35.9 % (42.0-52.0); HEMOGLOBIN. 11.3 g/dL (14.0-18.0); MEAN CORPUSCULAR HEMOGLOBIN 28.7 pg (28.0-32.0); MEAN CORPUSCULAR VOLUME 90.7 fL (80.0-94.0); MEAN PLATELET VOLUME 11.8 fl (7.4-10.4); RED BLOOD CELL COUNT 3.95 mill/uL (4.7-6.1); RED CELL DISTRIBUTION WIDTH 15.8 % (11.6-14.6)
[2020-03-22 06:40] LABS: PHOSPHORUS 5.3 mg/dL (2.5-4.9)
[2020-03-22 06:49] LABS: PLATELET 46 x1000/uL (130-400)
[2020-03-22] MEDS ORDERED: AMIODARONE HCL 900 MG in DEXT 5% WATER 482 ML IV PRN (08:45)
[2020-03-22] MEDS ORDERED: AMIODARONE HCL 150 MG in DEXT 5% WATER 100 ML IV SCH (08:45)
[2020-03-22] MEDS ORDERED: DEXTROSE 5% WATER 1,000 ML IV SCH (09:00)
[2020-03-22] MEDS: PHENYLEPHRINE 100 MG in SODIUM CHLORIDE 0.9% 240 ML IV SCH (09:03)
[2020-03-22 10:10] LABS: PLATELET ESTIMATE DECREASED
[2020-03-22] MEDS: ZINC SULFATE 220 MG ( 50 ) CAPSULE PO SCH (10:22)
[2020-03-22] MEDS: PANTOPRAZOLE SODIUM 40 MG/VIAL IV SCH (10:22)
[2020-03-22] MEDS: HYDROCORTISONE SOD SUCCINATE 100 MG/2 ML VIAL IV SCH ×2 (10:22→18:39)
[2020-03-22] MEDS: ASPIRIN 81MG TABLET PO SCH (10:23)
[2020-03-22] MEDS: TACROLIMUS 1 MG/ML NG SCH (10:23)
[2020-03-22] MEDS: INSULIN GLARGINE UD 100 UNITS/ML SYR SUBCUT SCH ×2 (10:23→22:00)
[2020-03-22] MEDS: FUROSEMIDE 20MG/2ML VIAL IVP SCH (10:23)
[2020-03-22] MEDS: ASCORBIC ACID 500 MG TABLET PO SCH ×2 (10:23→22:21)
[2020-03-22] MEDS: VASOPRESSIN 20 UNIT in SODIUM CHLORIDE 0.9% 99 ML IV PRN ×2 (13:00→20:00)
[2020-03-22 13:12] LABS: BG BASE EXCESS -1.6 mmol/L (-2.0-2.0); BG CARBOXYHEMOGLOBIN 1.6 % (0.5-1.5); BG DEOXYHEMOGLOBIN 22.7 % (0.0-5.0); BG FRACTION INSPIRED OXYGEN 100; BG HCO3 ACT 25.4 mmol/L (22.0-26.0); BG METHEMOGLOBIN 0.1 % (0.0-1.5); BG OXYGEN SATURATION 76.9 % (92.0-98.5); BG OXYHEMOGLOBIN 75.6 % (94.0-97.0); BG PCO2 52.6 mmHg (35.0-45.0); BG PH 7.302 (7.350-7.450); BG PO2 44.7 mmHg (75.0-100.0); BG SAMPLE SITE RIGHT RADIAL; BG TOTAL HEMOGLOBIN 13.5 g/dL (12.0-18.0); BG TOTAL RESPIRATORY RATE 36 b/min; BG VENT MODE VENT - AC
[2020-03-22] MEDS: AMIODARONE HCL 200 MG TABLET PO SCH ×2 (14:19→22:21)
[2020-03-22] MEDS ORDERED: MIDAZOLAM HCL 100 MG in DEXT 5% WATER 80 ML IV PRN (16:15)
[2020-03-22 16:46] LABS: BG CARBOXYHEMOGLOBIN 1.6 % (0.5-1.5); BG DEOXYHEMOGLOBIN 23.4 % (0.0-5.0); BG FRACTION INSPIRED OXYGEN 100; BG HCO3 ACT 21.6 mmol/L (22.0-26.0); BG METHEMOGLOBIN 0.2 % (0.0-1.5); BG OXYGEN SATURATION 76.2 % (92.0-98.5); BG OXYHEMOGLOBIN 74.8 % (94.0-97.0); BG PCO2 63.7 mmHg (35.0-45.0); BG PH 7.149 (7.350-7.450); BG PO2 47.4 mmHg (75.0-100.0); BG SAMPLE SITE RIGHT RADIAL; BG TOTAL HEMOGLOBIN 13.4 g/dL (12.0-18.0); BG TOTAL RESPIRATORY RATE 39 b/min; BG VENT MODE VENT - AC
[2020-03-22 22:59] LABS: BG BASE EXCESS -16.6 mmol/L (-2.0-2.0); BG CARBOXYHEMOGLOBIN 0.8 % (0.5-1.5); BG DEOXYHEMOGLOBIN 11.8 % (0.0-5.0); BG FRACTION INSPIRED OXYGEN 100; BG METHEMOGLOBIN 0.3 % (0.0-1.5); BG OXYGEN SATURATION 88.1 % (92.0-98.5); BG OXYHEMOGLOBIN 87.1 % (94.0-97.0); BG PCO2 52.7 mmHg (35.0-45.0); BG PH 7.041 (7.350-7.450); BG PO2 65.6 mmHg (75.0-100.0); BG SAMPLE SITE RIGHT RADIAL; BG TOTAL HEMOGLOBIN 13.1 g/dL (12.0-18.0); BG VENT MODE VENT - AC
[2020-03-22] MEDS ORDERED: SODIUM BICARBONATE 8.4% 1 MEQ/ML 50ML SYR IV SCH (23:15)
[2020-03-23] VITALS (47 sets, daily range): BP systolic 72–193; BP diastolic 30–86
[2020-03-23] MEDS: BLOOD SUGAR DIAGNOSTIC STRIP TEST SCH ×2 (00:32→06:57)
[2020-03-23] MEDS: DEXTROSE 50% WATER 50ML SYRINGE IV PRN ×2 (00:33→02:58)
[2020-03-23] MEDS: HYDROCORTISONE SOD SUCCINATE 100 MG/2 ML VIAL IV SCH (02:23)
[2020-03-23] MEDS: TACROLIMUS 1 MG/ML NG SCH (03:06)
[2020-03-23] MEDS: PHENYLEPHRINE 100 MG in SODIUM CHLORIDE 0.9% 240 ML IV SCH (03:13)
[2020-03-23] MEDS: FENTANYL CITRATE/PF 2,500 MCG in SODIUM CHLORIDE 0.9% 200 ML IV PRN (03:13)
[2020-03-23] MEDS: IPRATROPIUM/ALBUTEROL 0.5-3(2.5)MG/3ML NEB HHN SCH (04:18)
[2020-03-23] MEDS ORDERED: DEXT 10% WATER 1,000 ML IV SCH (05:00)
[2020-03-23] MEDS: INSULIN LISPRO 100 UNITS/ML SUBCUT SCH ×2 (06:00)
[2020-03-23] MEDS ORDERED: DOPAMINE 800MG PREMIX (DOUBLE) 250 ML IV PRN (06:00)
[2020-03-23 06:16] LABS: HEMATOCRIT. 32.4 % (42.0-52.0); HEMOGLOBIN. 8.9 g/dL (14.0-18.0); MEAN CORPUSCULAR HEMOGLOBIN 28.9 pg (28.0-32.0); MEAN CORPUSCULAR VOLUME 105.5 fL (80.0-94.0); MEAN PLATELET VOLUME 14.7 fl (7.4-10.4); RED BLOOD CELL COUNT 3.07 mill/uL (4.7-6.1)
[2020-03-23 06:57] LABS: PLATELET 44 x1000/uL (130-400)
[2020-03-23] MEDS: THEOPHYLLINE ANHYDROUS 80 MG/15 ML 120ML NG SCH (06:57)
[2020-03-23] MEDS ORDERED: EPINEPHRINE 10 MG in SODIUM CHLORIDE 0.9% 240 ML IV PRN (07:00)
[2020-03-23 12:46] LABS: NUCLEATED RED BLOOD CELLS 1 /100 WBC
[2020-03-23 12:47] LABS: PLATELET ESTIMATE MARKEDLY DECREASED
== END 2020-03-23 10:36 | disposition expired | DRG 870 ==
LOC: ER 19:29 → MICUSO 21:11 → SUPCPDRO 21:20 → CVICU 03-15 17:23
PROVIDERS: ADMIT Internal Medicine; ATTEND Internal Medicine
PROC: 5A1955Z Respiratory Ventilation, Greater than 96 Consecutive Hours (ICD-10-PCS; principal; 2020-03-08)
PROC: 0BH17EZ Insertion of Endotracheal Airway into Trachea, Via Natural or Artificial Opening (ICD-10-PCS; 2020-03-08)
PROC: 06HY33Z Insertion of Infusion Device into Lower Vein, Percutaneous Approach (ICD-10-PCS; 2020-03-17)
PROC: B54CZZA Ultrasonography of Left Lower Extremity Veins, Guidance (ICD-10-PCS; 2020-03-17)
PROC: 5A1D70Z Performance of Urinary Filtration, Intermittent, Less than 6 Hours Per Day (ICD-10-PCS; 2020-03-17)
PROC: 5A12012 Performance of Cardiac Output, Single, Manual (ICD-10-PCS; 2020-03-23)
DX: A41.89 Other specified sepsis (principal); U07.1 COVID-19; J96.01 Acute respiratory failure with hypoxia; N17.0 Acute kidney failure with tubular necrosis; E43 Unspecified severe protein-calorie malnutrition; I50.33 Acute on chronic diastolic (congestive) heart failure; G92 Toxic encephalopathy; K72.00 Acute and subacute hepatic failure without coma; N18.6 End stage renal disease; R65.21 Severe sepsis with septic shock; J96.02 Acute respiratory failure with hypercapnia; J12.82 Pneumonia due to coronavirus disease 2019; E87.1 Hypo-osmolality and hyponatremia; E87.2 Acidosis; I13.2 Hypertensive heart and chronic kidney disease with heart failure and with stage 5 chronic kidney disease, or end stage renal disease; D68.59 Other primary thrombophilia; I47.1 Supraventricular tachycardia; Z94.0 Kidney transplant status; D72.810 Lymphocytopenia; I46.9 Cardiac arrest, cause unspecified; R00.1 Bradycardia, unspecified; R74.01 Elevation of levels of liver transaminase levels; E87.5 Hyperkalemia; D69.6 Thrombocytopenia, unspecified; E83.39 Other disorders of phosphorus metabolism; E83.41 Hypermagnesemia; E87.6 Hypokalemia; I48.0 Paroxysmal atrial fibrillation; Z68.23 Body mass index [BMI] 23.0-23.9, adult; Z79.899 Other long term (current) drug therapy; Z78.1 Physical restraint status; Z86.16 Personal history of COVID-19
CPT/HCPCS: 31500; 36415; 36556; 36600; 71045; 76937; 80048; 80053; 80061; 80197; 81003; 82375; 82550; 82553; 82607; 82728; 82746; 82805; 82962; 83036; 83540; 83550; 83605; 83615; 83735; 83880; 84100; 84132; 84145; 84484; 85025; 85379; 86140; 86850; 86900; 87070; 92950; 93005; 93970; 94003; 94640; 96365; 99291; C1752; C9113; J0282; J0456; J0696; J1100; J1265; J1642; J1650; J1720; J1815; J1940; J2250; J2370; J2543; J2704; J3010; J3370; J3490; J7042; J7050; J7060; J7070; J7507; J7517; P9034; U0003; A4315